=== PATIENT | male | born 2005 | race Caucasian/White ===

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

== ENCOUNTER 2023-05-13 18:14 | Outpatient (REF) | payer OTHER, SELFPAY ==
[2023-05-15 10:28] LABS: Hepatitis B Surface Ag Negative (Negative)
[2023-05-15 11:09] LABS: Hepatitis C Ab w Rflx HCV PCR Negative (Negative)
[2023-05-15 11:13] LABS: HIV-1/2 Ag & Ab Screen Negative (Negative)
[2023-05-15 11:53] LABS: Hep A Total Ab w Rflx IgM Negative (Negative)
== END 2023-05-13 18:15 | disposition home or self-care (01) ==
LOC: LBN 18:14
PROVIDERS: Visit Provider Physician Assistant Medical
DX: Z13.9 Encounter for screening, unspecified (principal)
CPT/HCPCS: 86709; 86803; 87340; 87389

== ENCOUNTER 2023-05-14 08:40 | Outpatient (CLI) | payer OTHER, SELFPAY ==
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
== END 2023-05-14 09:00 ==
LOC: DI 08:41
PROVIDERS: Visit Provider Physician Assistant Medical
DX: Z13.6 Encounter for screening for cardiovascular disorders (principal)
CPT/HCPCS: 71046

== ENCOUNTER 2023-08-04 22:42 | Outpatient (REF) | payer OTHER, SELFPAY | END 2023-08-04 22:43 | disposition home or self-care (01) | LOC: LBN 22:42 | PROVIDERS: Visit Provider Nurse Practitioner Family | DX: J02.9 Acute pharyngitis, unspecified (principal) | CPT/HCPCS: 87070 ==